=== PATIENT | male | born 1980 | race Caucasian/White ===

== ENCOUNTER 2016-06-18 11:38 | Emergency (ER) | payer SELFPAY ==
--- NOTE | 2016-06-18 11:59 | Emergency Department Record ---
History of Present Illness - General Chief complaint: Lower Extremity Pain Stated complaint: leg injury Time Seen by Provider: 06/18/16 11:58 Source: Patient Mode of Arrival: Ambulatory Limitations: No limitations - History of Present Illness Initial comments: The patient is here due to L lower leg pain. He had the lower leg pinned between a log and a back hoe at work 2 hours ago. The leg was pinned for approx. 10 seconds. He had immediate pain and was able to ambulate on it with a lot of pain. There is no reported numbness or tingling. His Td is UTD. MD Complaint: Extremity pain Onset/Timin -: Hour(s) Location: Left, Lower Leg History of Same: No Radiation: None Severity scale (1-10): 10 Quality: Sharp, Stabbing Consistency: Constant Improves with: Nothing Worsens with: Exertion, Walking, Weight bearing - Related Data Home Medications Medication Instructions Recorded Confirmed Last Taken Naproxen Sodium [Anaprox Ds] 550 mg PO BID PRN 06/18/16 06/18/16 Unknown Previous Rx's Medication Instructions Recorded Hydrocodone/Acetaminophen [Westbrook 1 - 2 each PO .EVERY 4-6 HRS PRN 06/18/16 5-325 Tablet] #20 tablet Allergies Allergy/AdvReac Type Severity Reaction Status Date / Time Penicillins Allergy Severe ANAPHYLAXIS Verified 06/18/16 11:56 amoxicillin Allergy ANAPHYLAXIS Verified 06/03/14 10:38 Travel Screening - Travel/Exposure Within Last 30 Days Have you traveled within the last 30 days?: Yes Location Detail:: [place] - Travel/Exposure Within Last Year Have you traveled outside the [place] in the last year?: No - Additonal Travel Details Have you been exposed to anyone with a communicable illness?: No - Travel Symptoms Symptom Screening: None Review of Systems Constitutional: Denies: Chills, Fever Eyes: Denies: Eye discharge ENT: Denies: Congestion Respiratory: Denies: Cough, Dyspnea Past Medical History - SOCIAL HISTORY Smoking Status: Never smoker Alcohol Use: Occassional Alcohol Use Comment: on weekends Drug Use: None - RESPIRATORY Hx Respiratory Disorders: No Comment:: High Cholesterol - CARDIOVASCULAR Hx Cardio Disorders: No Hx Cardiac Cath: No Hx Chest Pain: No Hx CHF: No Hx Deep Vein Thrombosis: No Hx Heart Attack: No Hx Coronary Artery Disease: No Hx Coronary Stent: No - NEURO Hx Neuro Disorders: No - GI Hx GI Disorders: No - Hx Genitourinary Disorders: No Hx Kidney Stones: Yes - ENDOCRINE Hx Endocrine Disorders: No - MUSCULOSKELETAL Hx Musculoskeletal Disorders: No Hx Back Injury: No Hx Musculoskeletal Disease: No - PSYCH Hx Psych Problems: No - HEMATOLOGY/ONCOLOGY Hx Hematology/Oncology Disorders: No Family Medical History Any Significant Family History?: Yes Hx Cancer: Grandparents Hx Diabetes: Mother Hx Heart Disease: Grandparents Hx HTN: Mother Hx Kidney Disease: Grandparents Physical Exam - General General Appearance: Alert, Oriented x3, Cooperative, No acute distress - Head Head exam: Atraumatic, Normocephalic, Normal inspection - Eye Eye exam: Normal appearance, PERRL - Respiratory Respiratory exam: Normal lung sounds bilaterally. negative: Respiratory distress - Cardiovascular Cardiovascular Exam: Regular rate, Normal rhythm, Normal heart sounds - Extremities Extremities exam: Calf tenderness, Normal capillary refill, Tenderness (There is tenderness to the L lateral anterior lower leg and the posterior medial lower leg at the sites of the cruch injury. There are very minor abrasions at those sites. There is no swelling or hematoma.), Other (The L lower leg and foot are NVI with normal pulses and sensation. The L foot and ankle flexion and extension is intact but with pain.). negative: Normal inspection, Full ROM, Joint swelling, Pedal edema Image of Full Body: 1 - trauma area. 2 - trauma area. - Neurological Neurological exam: Alert, Oriented X3. negative: Motor sensory deficit Course Vital Signs 06/18/16 11:49 Temperature 99.2 F Pulse Rate 69 Respiratory 22 Rate Blood Pressure 152/82 Pulse Ox 100 - Reevaluation(s) Reevaluation #1: The patient is doing much better at this time. He denies any new issues. 06/18/16 12:41 Reevaluation #2: The patient is doing a little better after the IV pain medicines. His xrays are neg for fx. 06/18/16 13:09 Reevaluation #3: The patient is doing much better at this time. He is feeling better regarding the L leg pain. He is to ice and elevate the leg and have it rechecked in 1 day. 06/18/16 13:55 Medical Decision Making - Data Complexity MDM Data: Labs Ordered and/or Reviewed, X-Ray Ordered and/or Reviewed - Lab Data Result diagrams: 06/18/16 12:55 06/18/16 12:55 - Radiology Data Radiology results: Report reviewed (L Tib/Fib: Neg per Rad.) Disposition Disposition: Discharge Clinical Impression: Contusion of leg, left Qualifiers: Encounter type: initial encounter Qualified Code(s): S80.12XA - Contusion of left lower leg, initial encounter Disposition: Home, Self-Care Condition: (1) Good Instructions: Contusion in Adults, Public Health Nutritionist (GEN) Additional Instructions: Please ice and elevate the L leg with no walking for 3 days. Please wear the brendan bandage and use crutches. Take your home pain medicines as needed along with Westbrook for pain. Please see your PCP or return to the ER in 24 hours for recheck. Return sooner for any increased pain, swelling, or fever. Prescriptions: Hydrocodone/Acetaminophen [Westbrook 5-325 Tablet] 1 - 2 each PO .EVERY 4-6 HRS PRN #20 tablet PRN Reason: Pain Forms: Patient Portal Access Time of Disposition: 13:55
[2016-06-18] MEDS ORDERED: HYDROMORPHONE HCL 1 MG/ML CPJ IVP ONE (12:03)
[2016-06-18] MEDS ORDERED: ONDANSETRON HCL IV 4 MG/2 ML VIAL IVP ONE (12:03)
[2016-06-18] MEDS ORDERED: KETOROLAC 30 MG/ML VIAL IVP ONE (13:03)
[2016-06-18 13:09] LABS: BASO % 0.3 % (0-6); EOS % 1.5 % (0-6); GRAN % 64.2 % (47-80); HEMATOCRIT 41.1 % (42.0-52.0); HEMOGLOBIN 14.5 gm/dl (14.0-18.0); LYMPH % 29.3 % (16-45); MEAN CELL VOLUME 89.9 fl (81-97); MEAN CORPUSCULAR HEMOGLOBIN 31.7 pg (27-33); MEAN CORPUSCULAR HGB CONC 35.3 g/dl (32-36); MONO % 4.7 % (0-9); PLATELET COUNT 309 K/uL (130-400); RED BLOOD COUNT 4.57 M/uL (4.40-5.70); RED CELL DISTRIBUTION WIDTH 11.6 % (11.5-14.5); WHITE BLOOD COUNT W/O DIFF 7.4 K/uL (4.2-12.2)
[2016-06-18 13:21] LABS: ANION GAP 13.8 (7-16); BLOOD UREA NITROGEN 13 mg/dL (9-20); CARBON DIOXIDE 28.2 mmol/L (22-30); CREATINE PHOSPHOKINASE 100 U/L (55-170); CREATININE 0.7 mg/dL (0.66-1.25); EST GLOMERULAR FILTRATION RATE > 60 ml/min; GLUCOSE,RANDOM 99 mg/dL (70-110)
--- NOTE | 2016-06-18 15:38 | RADIOLOGY REPORT ---
EXAM: LOWER LEG, LEFT HISTORY: INJURY. TECHNIQUE: AP and lateral views of the left tibia and fibula were performed. FINDINGS: No evidence of fracture or dislocation. No lytic or blastic lesion. No joint effusion. IMPRESSION: NEGATIVE LEFT TIBIA AND FIBULA EXAMINATION. JOB NUMBER: [id number] MTDD
== END 2016-06-18 14:11 | disposition home or self-care (01) ==
LOC: ER 11:38
DX: S80.12XA Contusion of left lower leg, initial encounter (principal); W31.89XA Contact with other specified machinery, initial encounter; Y99.0 Civilian activity done for income or pay
CPT/HCPCS: 99284 ×2; 96374; 96375; 82550; 85025; 80048; 73590; J1885; J2405; J1170

== ENCOUNTER 2018-04-18 10:48 | Emergency (ER) | payer BC ==
--- NOTE | 2018-04-18 11:00 | Emergency Department Record ---
History of Present Illness - General Chief complaint: Fatigue and Weakness Stated complaint: TIGHTNESS IN CHEST Time Seen by Provider: 04/18/18 10:52 Source: Patient Mode of Arrival: Ambulatory Limitations: No limitations - History of Present Illness Initial comments: 37 yo male presents from radiology with increasing left leg pain and chest pain. The leg has been painful for about a month. He had an injury in the past to the leg. He saw his PCP and an outpatient doppler was performed. On he had a venous doppler completed. The reading was "suspicious for deep vein thrombosis in the peroneal, posterior tibial, and anterior tibial veins. The proximal structures are patent" The last few days he has had pain in the upper thigh. Last night he had a feeling of the need to take deeper breaths and then a tightness followed by a sharp pain lasting briefly. He had a repeat venous doppler prior to arrival in the ED. PCP is Sally Mcgraw in the [facility]. He reports this is his first DVT. He reports his sister of a PE. He is on Eliquis 10mg BID for one week. No current chest discomfort. MD Complaint: Generalized weakness -: Days(s) Location: Generalized Severity: Mild Quality: Sharp Consistency: Intermittent Improves with: None, Other Context: Other (Recent DVT) Associated Symptoms: Chest pain, Other (Leg pain on the left) - Kristina Coma Scale Eye Response: (4) Open spontaneously Motor Response: (6) Obeys commands Verbal Response: (5) Oriented Kristina Total: 15 - Related Data Allergies Allergy/AdvReac Type Severity Reaction Status Date / Time Penicillins Allergy Severe ANAPHYLAXIS Verified 04/18/18 10:50 amoxicillin Allergy ANAPHYLAXIS Verified 04/18/18 10:50 Review of Systems Constitutional: Reports: Weakness. Denies: Chills, Fever, Malaise Eyes: Denies: Eye discharge ENT: Denies: Congestion, Throat pain Respiratory: Reports: Dyspnea. Denies: Cough, Hemoptysis, Stridor, Wheezes Cardiovascular: Reports: As per HPI, Chest pain Endocrine: Reports: Fatigue Gastrointestinal: Denies: Abdominal pain, Diarrhea, Nausea, Vomiting Genitourinary: Denies: Dysuria, Frequency, Hematuria Musculoskeletal: Reports: Myalgia. Denies: Arthralgia, Back pain, Neck pain Skin: Denies: Bruising, Change in color, Rash Neurological: Denies: Headache, Weakness Psychiatric: Denies: Anxiety Hematological/Lymphatic: Reports: Blood Clots. Denies: Easy bleeding, Easy bruising Past Medical History - SOCIAL HISTORY Smoking Status: Never smoker Alcohol Use Comment: on weekends Drug Use: None - RESPIRATORY Hx Respiratory Disorders: No Comment:: High Cholesterol - CARDIOVASCULAR Hx Cardio Disorders: No Hx Cardiac Cath: No Hx Chest Pain: No Hx CHF: No Hx Deep Vein Thrombosis: No Hx Heart Attack: No Hx Coronary Artery Disease: No Hx Coronary Stent: No - NEURO Hx Neuro Disorders: No - GI Hx GI Disorders: No - Hx Genitourinary Disorders: No Hx Kidney Stones: Yes - ENDOCRINE Hx Endocrine Disorders: No - MUSCULOSKELETAL Hx Musculoskeletal Disorders: No Hx Back Injury: No Hx Musculoskeletal Disease: No - PSYCH Hx Psych Problems: No - HEMATOLOGY/ONCOLOGY Hx Hematology/Oncology Disorders: No Family Medical History Hx Cancer: Grandparents Hx Diabetes: Mother Hx Heart Disease: Grandparents Hx HTN: Mother Hx Kidney Disease: Grandparents Physical Exam - General General Appearance: Alert, Oriented x3, Cooperative, No acute distress Limitations: No limitations - Head Head exam: Atraumatic, Normal inspection - Eye Eye exam: Normal appearance. negative: Conjunctival injection, Scleral icterus - ENT ENT exam: Normal exam, Mucous membranes moist Ear exam: Normal external inspection Nasal Exam: Normal inspection Mouth exam: Normal external inspection - Neck Neck exam: Normal inspection - Respiratory Respiratory exam: Normal lung sounds bilaterally. negative: Accessory muscle use, Chest wall tenderness, Decreased breath sounds, Prolonged expiratory, Respiratory distress, Rhonchi, Stridor, Wheezes - Cardiovascular Cardiovascular Exam: Regular rate, Normal rhythm, Normal heart sounds Peripheral Pulses: 2+: Radial (R), Radial (L), Dorsalis Pedis (L) - GI/Abdominal GI/Abdominal exam: Soft. negative: Tenderness - Rectal Rectal exam: Deferred - exam: Deferred - Extremities Extremities exam: Normal inspection, Tenderness (tender medial distal thigh, no mass, redness or warmth), Other (Normal inspection). negative: Pedal edema - Back Back exam: Denies: CVA tenderness (R), CVA tenderness (L) - Neurological Neurological exam: Alert, Normal gait, Oriented X3 - Psychiatric Psychiatric exam: Normal affect, Normal mood - Skin Skin exam: Dry, Intact, Normal color, Warm Course - Reevaluation(s) Reevaluation #1: Vitals reviewed. No tachycardia, hypoxia or hypotension EKG 11:02 NSR rate of 64, intervals normal, axis L, ST NS inferior changes ( similar to 2015), No changes on today's EKG compared to 06/03/14 04/18/18 11:07 04/18/18 11:41 The CBC,BMP, and Troponin are normal 04/18/18 12:31 The venous doppler of the leg was read as DVT of the proximal calf veins. This is UNCHANGED from the first dopper on the . NO popliteal or more proximal new larger DVTs. No signs of DVT propagation. The Chest CT scan is negative for acute changes. No PE. 04/18/18 12:34 There are no findings on examination or on the testing that demonstrate new thrombo-emolic disease. He is currently on Eliquis already. The discomfort is atypical for ACS with brief atypical pain last night with a normal troponin and unchanged EKG. His HEART score is LOW at 1 with his mother having an MD in her late 50's. 04/18/18 12:41 I discussed the case with his primary care provider Crow Mcgraw. The patient has reliable follow up. He will also be referred to cardiology for his atypical chest pain. The patient and I discussed close follow up, reasons to return, and the referral to cardiology. 04/18/18 12:52 Medical Decision Making - Lab Data Result diagrams: 04/18/18 11:00 04/18/18 11:00 Disposition Disposition: Discharge Clinical Impression: DVT (deep venous thrombosis) Qualifiers: DVT location: lower extremity Affected thrombotic vein of extremity: unspecified lower extremity proximal vein Chronicity: acute Laterality: left Qualified Code(s): I82.4Y2 - Acute embolism and thrombosis of unspecified deep veins of left proximal lower extremity Disposition: Home, Self-Care Condition: (1) Good Instructions: Chest Pain (ED), Deep Vein Thrombosis Prevention (ED) Additional Instructions: Return or be seen immediately if you have chest pain or shortness of breath Stay on your Eliquis as directed Follow up with Sally Mcgraw next week as scheduled Referrals: RITESH LOVETT M.D. [MEDICAL DOCTOR] - [facility] [Provider Group] Forms: Patient Portal Access Time of Disposition: 12:57 Quality - Quality Measures Quality Measures: N/A - Blood Pressure Screening Does Patient Have Any of the Following: No Blood Pressure Classification: Normal BP Reading Systolic Measurement: 114 Diastolic Measurement: 62 Screening for High Blood Pressure: < Normal BP, F/U Not Required > [G8783]
[2018-04-18 11:12] LABS: BASO % 0.5 % (0-6); EOS % 2.7 % (0-6); GRAN % 46.2 % (47-80); HEMOGLOBIN 15.1 gm/dl (14.0-18.0); LYMPH % 42.2 % (16-45); MEAN CELL VOLUME 90.3 fl (81-97); MEAN CORPUSCULAR HEMOGLOBIN 31.7 pg (27-33); MEAN CORPUSCULAR HGB CONC 35.1 g/dl (32-36); MEAN PLATELET VOLUME 8.7 fl (7.4-10.4); MONO % 8.4 % (0-9); PLATELET COUNT 294 K/uL (130-400); RED BLOOD COUNT 4.76 M/uL (4.40-5.70); RED CELL DISTRIBUTION WIDTH 11.4 % (11.5-14.5); WHITE BLOOD COUNT W/O DIFF 6.6 K/uL (4.2-12.2)
[2018-04-18 11:24] LABS: PARTIAL THROMBOPLASTIN TIME 28.5 SECONDS (24.5-39.1); PROTHROMBIN TIME (PATIENT) 10.4 SECONDS (9.5-12.1)
[2018-04-18 11:25] LABS: BLOOD UREA NITROGEN 14 mg/dL (6-20); CREATININE 0.9 mg/dL (0.7-1.2); EST GLOMERULAR FILTRATION RATE > 60 mL/min
[2018-04-18 11:28] LABS: GLUCOSE,RANDOM 100 mg/dL (74-109)
--- NOTE | 2018-04-18 14:01 | CT ANGIOGRAM REPORT ---
DATE: 04/18/2018. EXAM: CT ANGIOGRAM OF THE CHEST WITH CONTRAST. HISTORY: POSITIVE DEEP VEIN THROMBOSIS. TECHNIQUE: CT angiogram of the chest was performed after intravenous administration of 80 mL of Omnipaque 350 contrast material. Sagittal and coronal MIP images were performed on an independent work station. FINDINGS: The mediastinal vasculature enhances normally. No mass or filling defect to suggest a pulmonary embolism. The heart and pericardium appear normal. No mediastinal or hilar lymphadenopathy. No infiltrate or pleural effusion. No pulmonary nodule or mass is appreciated. The visualized upper abdominal structures are normal. IMPRESSION: NEGATIVE CT ANGIOGRAM OF THE CHEST. JOB NUMBER: [id number] MTDD
== END 2018-04-18 13:07 | disposition home or self-care (01) ==
LOC: ER 10:48
DX: I82.4Y2 Acute embolism and thrombosis of unspecified deep veins of left proximal lower extremity (principal); R07.89 Other chest pain; R53.1 Weakness; Z79.01 Long term (current) use of anticoagulants
CPT/HCPCS: 99284 ×2; 85025; 85730; 85610; 80048; 84484; 71275; 93005; 93010; Q9967

== ENCOUNTER 2019-04-05 18:10 | Emergency (ER) | payer BC ==
--- NOTE | 2019-04-05 19:32 | Emergency Department Record ---
History of Present Illness - General Chief Complaint: Dizziness Stated Complaint: NUMBMESS,DIZZINES,LOSSS OF SIGT Time Seen by Provider: 04/05/19 18:55 Source: Patient Mode of Arrival: Ambulatory Limitations: No limitations - History of Present Illness Initial Comments: The patient is here due to multiple complaints. He has had intermittent visual changes for almost a month along with worsening dizziness and unsteadiness. For the last 2 days he has had L facial burning and L neck pain with L arm weakness. The patient did go to an yesterday and did get started on Prednisone. He denies any ORTEGA, CP, trauma, fever, ST or vomiting. The patient does have a hx of cervical disc issues but that has been improved recently. MD Complaint: Dizziness, Difficulty walking Onset/Timin -: Month(s) Timing: Gradual onset Description: Off-balance, "Room spinning" History of Same: No History of Trauma: No Improves With: Nothing Worsens With: Position Associated Symptoms: Denies other symptoms - [place] Coma Scale Eye Response: (4) Open spontaneously Motor Response: (6) Obeys commands Verbal Response: (5) Oriented Kristina Total: 15 - Related Data Home Medications Medication Instructions Recorded Confirmed Last Taken Prednisone 10 mg PO ASDIR 04/05/19 04/05/19 04/05/19 Allergies Allergy/AdvReac Type Severity Reaction Status Date / Time Penicillins Allergy Severe ANAPHYLAXIS Unverified 10/21/18 16:19 amoxicillin Allergy ANAPHYLAXIS Unverified 10/21/18 16:19 Travel Screening - Travel/Exposure Within Last 30 Days Have you traveled within the last 30 days?: Yes Location Detail:: [place] - Travel/Exposure Within Last Year Have you traveled outside the [place] in the last year?: No - Additonal Travel Details Have you been exposed to anyone with a communicable illness?: No - Travel Symptoms Symptom Screening: None Review of Systems Constitutional: Denies: Chills, Fever Eyes: Denies: Eye discharge ENT: Denies: Congestion Respiratory: Denies: Cough, Dyspnea Cardiovascular: Denies: Arrhythmia Endocrine: Denies: Fatigue Gastrointestinal: Denies: Nausea Genitourinary: Denies: Dysuria Musculoskeletal: Denies: Arthralgia Neurological: Denies: Confusion Past Medical History - SOCIAL HISTORY Smoking Status: Never smoker Alcohol Use: Occasional Drug Use: None - RESPIRATORY Hx Respiratory Disorders: No Comment:: High Cholesterol - CARDIOVASCULAR Hx Cardio Disorders: No Hx Cardiac Cath: No Hx Chest Pain: No Hx CHF: No Hx Deep Vein Thrombosis: No Hx Heart Attack: No Hx Coronary Artery Disease: No Hx Coronary Stent: No - NEURO Hx Neuro Disorders: No - GI Hx GI Disorders: No Comment:: soft tissue mass left groin - Hx Genitourinary Disorders: No Hx Kidney Stones: Yes - ENDOCRINE Hx Endocrine Disorders: No - MUSCULOSKELETAL Hx Musculoskeletal Disorders: No Hx Back Injury: No Hx Musculoskeletal Disease: No - PSYCH Hx Psych Problems: No - HEMATOLOGY/ONCOLOGY Hx Hematology/Oncology Disorders: No Family Medical History Any Significant Family History?: Yes Hx Cancer: Grandparents Hx Diabetes: Mother Hx Heart Disease: Grandparents Hx HTN: Mother Hx Kidney Disease: Grandparents Physical Exam - General General Appearance: Alert, Oriented x3, Cooperative, No acute distress - Head Head exam: Atraumatic, Normocephalic, Normal inspection - Eye Eye exam: Normal appearance, PERRL, EOMI - ENT ENT exam: TM's normal bilaterally Throat exam: Normal inspection. negative: Tonsillar erythema, Tonsillar exudate - Neck Neck exam: Normal inspection, Full ROM, Tenderness (There is posterior L neck tenderness.) - Respiratory Respiratory exam: Normal lung sounds bilaterally. negative: Respiratory distress - Cardiovascular Cardiovascular Exam: Regular rate, Normal rhythm, Normal heart sounds - GI/Abdominal GI/Abdominal exam: Soft, Normal bowel sounds. negative: Tenderness - Extremities Extremities exam: Normal inspection, Full ROM, Normal capillary refill. negative: Tenderness - Neurological Neurological exam: Alert, Motor sensory deficit (There is 4+/5 L arm weakness.), Normal gait, Oriented X3, Reflexes normal, Other (Neg Drift but mildly positive Rhomberg.). negative: Abnormal gait, Altered - Psychiatric Psychiatric exam: negative: Anxious - Skin Skin exam: negative: Rash Course Vital Signs 04/05/19 18:53 Temperature 98.4 F Pulse Rate [ 66 Pulse Ox Probe] Respiratory 20 Rate Blood Pressure 147/83 [Left Arm] Pulse Ox 98 - Reevaluation(s) Reevaluation #1: The patient is doing OK at this time but still is having the same symptoms. Due to needing multiple tests including MRI's the patient will need to be transferred to another hospital and would like to go to [facility]. I did discuss the issues with Dr. Cheema at [facility] and he does accept the patient for a direct admission. 04/05/19 21:04 Medical Decision Making - Data Complexity MDM Data: Labs Ordered and/or Reviewed, X-Ray Ordered and/or Reviewed - Lab Data Result diagrams: 04/05/19 19:40 04/05/19 19:40 - Radiology Data Radiology results: Report reviewed (Head CT: Neg.) Disposition Disposition: Transfer Clinical Impression: Gait instability Disposition: Acute Care Hospital Transfer Transfer To: [facility] Reason For Transfer: Neurology Accepting Physician: Anette Time Discussed w/Accepting Physician: 21:05 Condition: (2) Stable Forms: Patient Portal Access Time of Disposition: 21:05 Quality - Quality Measures Quality Measures: N/A - Blood Pressure Screening View Details: Yes Does Patient Have Any of the Following: No Blood Pressure Classification: Pre-Hypertensive BP Reading Systolic Measurement: 132 Diastolic Measurement: 79 Screening for High Blood Pressure: < Pre-Hypertensive BP, F/U Documented > [G8950] Pre-Hypertensive Follow-up Interventions: Referral to alternative/primary care provider.
[2019-04-05 19:43] LABS: ABSOLUTE NEUTROPHIL COUNT 5.54; BASO % 0.1 % (0-6); EOS % 0.1 % (0-6); GRAN % 75.8 % (47-80); HEMATOCRIT 45.4 % (42.0-52.0); HEMOGLOBIN 15.7 gm/dl (14.0-18.0); LYMPH % 19.9 % (16-45); MEAN CELL VOLUME 89.7 fl (81-97); MEAN CORPUSCULAR HGB CONC 34.6 g/dl (32-36); MEAN PLATELET VOLUME 8.6 fl (7.4-10.4); MONO % 4.1 % (0-9); PLATELET COUNT 329 K/uL (130-400); RED BLOOD COUNT 5.06 M/uL (4.40-5.70); RED CELL DISTRIBUTION WIDTH 11.7 % (11.5-14.5); WHITE BLOOD COUNT W/O DIFF 7.3 K/uL (4.2-12.2)
[2019-04-05 19:58] LABS: BLOOD UREA NITROGEN 21 mg/dL (6-20); EST GLOMERULAR FILTRATION RATE > 60 mL/min
[2019-04-05 20:01] LABS: GLUCOSE,RANDOM 121 mg/dL (74-109)
[2019-04-05 20:03] LABS: ALT/SGPT 26 U/L (<41)
[2019-04-05 20:04] LABS: ALBUMIN 5.1 g/dL (4.0-5.0); ALKALINE PHOSPHATASE 65 U/L (40-129); AST/SGOT 17 U/L (10.0-50.0); BILIRUBIN,DIRECT < 0.2 mg/dL (0-0.3)
--- NOTE | 2019-04-05 20:19 | CT SCAN REPORT ---
EXAMINATION: CT Head without IV Contrast EXAM DATE: 04/05/2019 8:15 PM TECHNIQUE: Standard protocol CT images of the head were obtained without intravenous contrast. Dinh l and sagittal reconstructed images were created. INDICATION: visual changes and facial burning COMPARISON: None HAND DOMINANCE: Unknown. ENCOUNTER: Not applicable FINDINGS: 1. There is no intracranial mass, midline shift, extraaxial fluid collection or hemorrhage. 2. The ventricles, sulci and cisterns are normal. 3. There are no suspicious area of altered attenuation. 4. There is no fracture. 5. The visualized aspects of the orbits, paranasal sinuses, and mastoid air cells are normal. IMPRESSION: Normal head CT. Dictated by: Thomas Lema MD on 04/05/2019 8:16 PM. .
[2019-04-05] MEDS ORDERED: KETOROLAC 30 MG/ML VIAL IVP ONE (20:50)
[2019-04-05] MEDS ORDERED: 0.9 % SODIUM CHLORIDE 1,000 ML BAG IV ONE (20:51)
== END 2019-04-05 21:23 | disposition short-term general hospital (02) ==
LOC: ER 18:10
DX: R26.89 Other abnormalities of gait and mobility (principal); R42 Dizziness and giddiness; R20.0 Anesthesia of skin; R29.898 Other symptoms and signs involving the musculoskeletal system; H53.9 Unspecified visual disturbance
CPT/HCPCS: 70450; 80048; 80076; 85025; 85651; 86140; 93005; 93010; 96374; 99285; J1885; J7030